=== PATIENT | male | born 1970 | race American Indian/Alaskan Native ===

== ENCOUNTER 2017-10-23 12:13 | Emergency (ER) | payer BC ==
[2017-10-23 12:23] VITALS: BP 138/83
[2017-10-23 12:41] LABS: Bacteria,Urine 1+ /HPF (Negative); Bilirubin,Urine NEG (Negative); Blood,Urine NEG (Negative); Color,Urine Yellow (Yellow); Mucus,Urine FEW /HPF
[2017-10-23 12:43] LABS: Basophils # (Auto) 0.1 K/mm3 (0.0-0.1); Basophils % (Auto) 0.9 % (0.0-1.8); Eosinophils # (Auto) 0.4 K/mm3 (0.0-0.4); Eosinophils % (Auto) 5.3 % (0.0-4.3); Hematocrit 41.4 % (35.5-45.6); Hemoglobin 13.4 gm/dl (11.8-15.2); Lymphocytes # (Auto) 2.2 K/mm3 (1.2-5.4); Mean Corpuscular HGB Conc 32 % (32-34); Mean Corpuscular Volume 79 fl (84-94); Monocytes # (Auto) 0.8 K/mm3 (0.0-0.8); Monocytes % (Auto) 11.5 % (0.0-7.3); Platelet Count 250 K/mm3 (140-440); Red Blood Count 5.22 M/mm3 (3.65-5.03); Red Cell Distribution Width 16.4 % (13.2-15.2)
[2017-10-23 12:46] LABS: Mean Corpuscular Hemoglobin 26 pg (28-32)
[2017-10-23 12:58] LABS: BUN/Creatinine Ratio 12; Blood Urea Nitrogen 11 mg/dL (9-20); Calcium 8.6 mg/dL (8.4-10.2); Hemolysis Index 9
[2017-10-23] MEDS ORDERED: TORADOL IM ONE (14:13)
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
== END 2017-10-23 15:57 | disposition home or self-care (01) ==
LOC: ED 12:13
DX: S39.012A Strain of muscle, fascia and tendon of lower back, initial encounter (principal); N39.0 Urinary tract infection, site not specified; X58.XXXA Exposure to other specified factors, initial encounter; Y93.89 Activity, other specified; Y99.8 Other external cause status; Y92.009 Unspecified place in unspecified non-institutional (private) residence as the place of occurrence of the external cause
CPT/HCPCS: 36415; 80048; 81001; 85025; 87086; 96372; 99283; J1885

== ENCOUNTER 2017-10-29 08:17 | Emergency (ER) | payer BC ==
[2017-10-29 10:09] LABS: Basophils % (Auto) 0.8 % (0.0-1.8); Eosinophils # (Auto) 0.2 K/mm3 (0.0-0.4); Eosinophils % (Auto) 3.4 % (0.0-4.3); Hemoglobin 13.5 gm/dl (11.8-15.2); Lymphocytes # (Auto) 1.2 K/mm3 (1.2-5.4); Lymphocytes % (Auto) 21.1 % (13.4-35.0); Mean Corpuscular HGB Conc 32 % (32-34); Mean Corpuscular Volume 80 fl (84-94); Monocytes # (Auto) 0.6 K/mm3 (0.0-0.8); Monocytes % (Auto) 9.5 % (0.0-7.3); Platelet Count 272 K/mm3 (140-440); Red Blood Count 5.36 M/mm3 (3.65-5.03); Red Cell Distribution Width 16.1 % (13.2-15.2)
[2017-10-29 10:10] LABS: Mean Corpuscular Hemoglobin 25 pg (28-32)
[2017-10-29 10:24] LABS: Bilirubin,Urine NEG (Negative); Blood,Urine NEG (Negative); Color,Urine Yellow (Yellow); Mucus,Urine FEW /HPF; Protein,Urine <15 mg/dL mg/dL (Negative); Urobilinogen,Urine < 2.0 mg/dL (<2.0); WBC,Urine < 1.0 /HPF (0.0-6.0)
[2017-10-29 10:33] LABS: Alanine Aminotransferase 34 units/L (7-56); Albumin 4.1 g/dL (3.9-5); BUN/Creatinine Ratio 16; Blood Urea Nitrogen 19 mg/dL (9-20); Calcium 9.2 mg/dL (8.4-10.2); Hemolysis Index 3
--- NOTE | 2017-10-29 10:35 | Cat Scan Report ---
FINAL REPORT EXAM: CT ABDOMEN PELVIS WO CON HISTORY: lower back and bilat flank pain; recent UTI TECHNIQUE: CT of the abdomen and pelvis without IV contrast. Coronal and sagittal reconstructed imaging provided. PRIORS: None currently available. FINDINGS: ABDOMEN: Mild scarring or discoid subsegmental atelectasis at both lung bases. Kidneys: Unremarkable. No hydronephrosis. No nephroureteral stones. Liver, gallbladder, stomach, spleen, pancreas, and adrenals are unremarkable. There is no abdominal aortic aneurysm. IVC is unremarkable. There is no periaortic or retroperitoneal adenopathy or mass. Collapse transverse colon down to the sigmoid colon limits evaluation for wall thickening. No stranding identified. [id number] stool in the remainder of colon without wall thickening. Terminal ilium is unremarkable. Appendix is normal. Small bowel loops are unremarkable. No obstructive pattern. No air-fluid levels. No free air. No free fluid. Mesentery is unremarkable. Fat-containing umbilical hernia without strangulation. PELVIS: Bladder is unremarkable. No wall thickening. No stones. There is no pelvic mass or adenopathy. Inguinal regions are unremarkable. Bones: No suspicious osseous lesions on this limited examination of the skeleton. Metastatic disease better evaluated with bone scan. Degenerative changes are in the spine. Streak artifact from right proximal femur internal fixation hardware is noted. IMPRESSION: No acute findings.
[2017-10-29 12:28] VITALS: BP 110/88
[2017-10-29] MEDS ORDERED: NORCO 5/325 PO ONE (14:15)
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
--- NOTE | 2017-10-29 15:19 | Cat Scan Report ---
CT ABDOMEN PELVIS WITH CONTRAST: HISTORY: Right flank pain. COMPARISON: Noncontrast CT abdomen and pelvis performed earlier the same day. TECHNIQUE: Helical CT in 1.25mm intervals following IV contrast. Sagittal and coronal reconstructions. FINDINGS: Lung bases: Normal. Liver: Normal. Biliary system: Normal. Pancreas: Normal. Spleen: Normal. Kidneys/ureters/bladder: Normal. No evidence for nephrolithiasis or pyelonephritis. Adrenal glands: Normal. Aorta: Normal. Intestines: Within normal limits given no oral contrast was administered. Appendix: Normal. Ascites: None. Adenopathy: None. Musculoskeletal: An intramedullary agustin is partially imaged in the proximal right femur. Mild heterotopic calcifications are noted just superior to the right greater trochanter. No evidence for fracture or suspicious bony lesion. IMPRESSION: No acute process is appreciated. No clear explanation for right flank pain.
== END 2017-10-29 16:15 | disposition home or self-care (01) ==
LOC: ED 08:17
DX: R10.31 Right lower quadrant pain (principal); R31.9 Hematuria, unspecified; F17.210 Nicotine dependence, cigarettes, uncomplicated
CPT/HCPCS: 36415; 74176; 74177; 80053; 81001; 85025; 87086; 99284; Q9967